=== PATIENT | female | born 1975 | race Caucasian/White ===

== ENCOUNTER 2019-05-01 15:49 | Emergency (ER) | payer OTHER ==
[~2019-05-01] VITALS: Ht 167.6 cm; Wt 86.2 kg
[~2019-05-01 15:49] MED LIST changes: -CALCIUM 500 +1 EAC5 PO
[2019-05-01] MEDS ORDERED: CALCIUM 500 +1 EAC5 PO (16:01)
[2019-05-01 17:20] VITALS: BP 132/70
--- NOTE | 2019-05-02 16:08 | EKG ---
[place] [address] ELECTROCARDIOGRAM REPORT Name: ESCOBEDOROBERT LAZARO Room: [facility]#: [id number] Admission: 05/01/19 Attend Phys: Discharge: 05/01/19 Date of : 75 Report #: [id number] THIS REPORT FOR: //name// [facility] ED Test Date: 2019-05-01 Test Time: 15:56:19 Pat Name: ROBERT ESCOBEDO Department: Room: Gender: F General Office Worker: SEEMA : 1975 Requested By: Akin Ibanez Order Number: [id number] MD: Ulysses Vigil Measurements Intervals [place] Rate: 71 P: 63 NH: 176 QRS: 29 QRSD: 84 T: 47 QT: 417 QTc: 454 Interpretive Statements Sinus rhythm Probable left atrial enlargement No previous ECG available for comparison Electronically Signed On 05-02-2019 16:07:57 CDT by Ulysses Vigil [email or web address] <ELECTRONICALLY SIGNED> By: Ulysses Vigil MD, [facility] 05/02/19 1607 [id number] 1556 Ulysses Vigil MD, FACC /EPI
== END 2019-05-01 17:21 | disposition home or self-care (01) ==
LOC: M.ERS 15:49
DX: R06.00 Dyspnea, unspecified (principal); R42 Dizziness and giddiness; R07.89 Other chest pain; R05 Cough; E03.9 Hypothyroidism, unspecified; E83.51 Hypocalcemia; Z88.0 Allergy status to penicillin; Z88.2 Allergy status to sulfonamides

== ENCOUNTER → 2019-05-01 | Outpatient (CLI) | payer OTHER ==
[~2019-05-01] MED LIST: CALCIUM 500 +1 EAC5 PO; CALCIUM CARBO1000 MG; LEVOTHYROXIN0.125 M1; NAPROSYN500 MG PO; ULTRAM 50MG TAB50 MG PO; VITAMIN D1000 UNI1
[2019-05-01 12:59] LABS: ABSOLUTE BASOPHILS 0.1 thou/uL (0.0-0.2); ABSOLUTE EOSINOPHILS 0.1 thou/uL (0.0-0.7); ABSOLUTE LYMPHOCYTES 1.3 thou/uL (0.8-5.3); ABSOLUTE MONOCYTES 0.4 thou/uL (0.0-1.2); ABSOLUTE NEUTROPHILS 5.6 thou/uL (1.6-8.1); BASOPHILS 0.7 %; EOSINOPHILS 0.8 %; HEMATOCRIT 40.3 % (37.0-47.0); HEMOGLOBIN 13.1 gm/dL (12.0-15.0); LYMPHOCYTES 17.3 %; MCH 28.5 pg (26.0-34.0); MCHC 32.5 g/dL (28.0-37.0); MCV 87.8 fL (80.0-100.0); MONOCYTES 4.8 %; MPV 8.5 fl. (7.2-11.1); NUCLEATED RBCS 0 /100WBC; PLATELET COUNT* 258 thou/uL (150-400); POLYS 76.4 %; RBC 4.59 mil/uL (4.20-5.00); RDW-CV 13.7 % (10.5-14.5); WBC 7.3 thou/uL (4.0-11.0)
[2019-05-01 13:12] LABS: ALBUMIN 3.7 g/dL (3.4-5.0); POTASSIUM 3.8 mmol/L (3.5-5.1); TOTAL BILIRUBIN 0.4 mg/dL (<0.1-1.0); TOTAL PROTEIN 7.5 g/dL (6.4-8.2)
== END ==
LOC: M.LAB 12:43
PROVIDERS: Internal Medicine Cardiovascular Disease
DX: R06.02 Shortness of breath (principal)

== ENCOUNTER → 2019-06-23 | Outpatient (CLI) | payer OTHER ==
[~2019-06-23] MED LIST changes: +CALCIUM 500 +1 EAC5 PO
[2019-06-23 07:57] LABS: ABSOLUTE BASOPHILS 0.1 thou/uL (0.0-0.2); ABSOLUTE EOSINOPHILS 0.1 thou/uL (0.0-0.7); ABSOLUTE LYMPHOCYTES 1.2 thou/uL (0.8-5.3); ABSOLUTE MONOCYTES 0.5 thou/uL (0.0-1.2); ABSOLUTE NEUTROPHILS 5.5 thou/uL (1.6-8.1); BASOPHILS 0.8 %; EOSINOPHILS 1.5 %; HEMATOCRIT 39.7 % (37.0-47.0); HEMOGLOBIN 13.3 gm/dL (12.0-15.0); LYMPHOCYTES 15.8 %; MCH 29.3 pg (26.0-34.0); MCHC 33.6 g/dL (28.0-37.0); MCV 87.3 fL (80.0-100.0); MONOCYTES 7.4 %; MPV 8.6 fl. (7.2-11.1); NUCLEATED RBCS 0 /100WBC; PLATELET COUNT* 219 thou/uL (150-400); POLYS 74.5 %; RBC 4.55 mil/uL (4.20-5.00); RDW-CV 14.5 % (10.5-14.5); WBC 7.3 thou/uL (4.0-11.0)
[2019-06-23 09:15] LABS: ALBUMIN 3.9 g/dL (3.4-5.0); ALKALINE PHOSPHATASE 63 U/L (46-116); ANION GAP 11 mmol/L (7-16); BUN 21 mg/dL (7-18); CALCIUM 7.4 mg/dL (8.5-10.1); CHLORIDE 100 mmol/L (98-107); CHOLESTEROL 202 mg/dL (<200); CO2 29 mmol/L (21-32); CREATININE 1.1 mg/dL (0.6-1.3); GLUCOSE 101 mg/dL (70-99); HDL CHOLESTEROL 58 mg/dL (>40); LDL CHOLESTEROL 138 mg/dL (<100); POTASSIUM 4.3 mmol/L (3.5-5.1); SGOT 25 U/L (15-37); SGPT 45 U/L (30-65); SODIUM 140 mmol/L (136-145); TC:HDL 3.5 Ratio (Not establshd); TOTAL BILIRUBIN 0.4 mg/dL (<0.1-1.0); TOTAL PROTEIN 7.6 g/dL (6.4-8.2); TRIGLYCERIDE 32 mg/dL (<150); VLDL 6 mg/dL (<40)
[2019-06-23 09:16] LABS: SERUM ASSESSMENT Clear
== END ==
LOC: M.LAB 07:29
PROVIDERS: Internal Medicine
DX: Z00.00 Encounter for general adult medical examination without abnormal findings (principal)

== ENCOUNTER → 2019-06-26 | Outpatient (CLI) | payer OTHER | LOC: M.ULTRA 12:30 | DX: R10.2 Pelvic and perineal pain (principal) ==

== ENCOUNTER → 2020-01-15 | Outpatient (CLI) | payer OTHER ==
[2020-01-15 14:59] LABS: URINE BILIRUBIN NEGATIVE (Negative); URINE BLOOD 3+ (Negative); URINE CLARITY CLEAR; URINE COLOR YELLOW; URINE GLUCOSE-RANDOM NEGATIVE (Negative); URINE KETONES NEGATIVE (Negative); URINE LEUKOCYTES 3+ (Negative); URINE NITRITE NEGATIVE (Negative); URINE PROTEIN NEGATIVE (Negative); URINE UROBILINOGEN 0.2 E.U./dl (0.2-1.0)
[2020-01-15 15:08] LABS: BACTERIA >30 Many /HPF (None Seen)
[2020-01-15 15:09] LABS: SQUAMOUS 0-3 Few /LPF (0-3)
[2020-01-15 15:10] LABS: CASTS None Seen /LPF (None Seen)
[2020-01-15 15:11] LABS: CRYSTALS None Seen /LPF (None Seen); URINE WBC >25 Many /HPF (0-5); WBC CLUMPS Few (None Seen)
[2020-01-15 15:18] LABS: RENAL EPITHELIAL CELLS 0-3 Few /LPF (None Seen)
== END ==
LOC: M.LAB 14:45
PROVIDERS: Internal Medicine
DX: R39.9 Unspecified symptoms and signs involving the genitourinary system (principal)

== ENCOUNTER → 2020-01-18 | Outpatient (CLI) | payer OTHER | LOC: M.CT 13:38 | DX: Z13.6 Encounter for screening for cardiovascular disorders (principal) ==

== ENCOUNTER → 2020-07-08 | Outpatient (CLI) | payer OTHER | LOC: M.RAD 14:15 | PROVIDERS: ATTEND Internal Medicine | DX: Z12.31 Encounter for screening mammogram for malignant neoplasm of breast (principal) ==

== ENCOUNTER → 2020-09-10 | Outpatient (CLI) | payer OTHER ==
[2020-09-10 08:16] LABS: ABSOLUTE EOSINOPHILS 0.1 thou/uL (0.0-0.7); ABSOLUTE LYMPHOCYTES 1.3 thou/uL (0.8-5.3); ABSOLUTE MONOCYTES 0.5 thou/uL (0.0-1.2); ABSOLUTE NEUTROPHILS 4.1 thou/uL (1.6-8.1); BASOPHILS 0.7 %; EOSINOPHILS 2.2 %; HEMATOCRIT 37.6 % (37.0-47.0); HEMOGLOBIN 12.6 gm/dL (12.0-15.0); LYMPHOCYTES 21.6 %; MCH 29.5 pg (26.0-34.0); MCHC 33.4 g/dL (28.0-37.0); MCV 88.4 fL (80.0-100.0); MONOCYTES 8.7 %; MPV 8.3 fl. (7.2-11.1); NUCLEATED RBCS 0 /100WBC; PLATELET COUNT* 252 thou/uL (150-400); POLYS 66.8 %; RBC 4.25 mil/uL (4.20-5.00); RDW-CV 13.9 % (10.5-14.5); WBC 6.1 thou/uL (4.0-11.0)
[2020-09-10 08:25] LABS: ALBUMIN 3.4 g/dL (3.4-5.0); ALKALINE PHOSPHATASE 65 U/L (46-116); ANION GAP 7 mmol/L (7-16); BUN 8 mg/dL (7-18); CALCIUM 6.9 mg/dL (8.5-10.1); CHLORIDE 101 mmol/L (98-107); CHOLESTEROL 192 mg/dL (<200); CO2 32 mmol/L (21-32); GLUCOSE 100 mg/dL (70-99); HDL CHOLESTEROL 52 mg/dL (>40); LDL CHOLESTEROL 134 mg/dL (<100); POTASSIUM 3.7 mmol/L (3.5-5.1); SGOT 21 U/L (15-37); SGPT 23 U/L (30-65); SODIUM 140 mmol/L (136-145); TC:HDL 3.7 Ratio (Not establshd); TOTAL BILIRUBIN 0.4 mg/dL (<0.1-1.0); TOTAL PROTEIN 7.1 g/dL (6.4-8.2); TRIGLYCERIDE 34 mg/dL (<150); VLDL 7 mg/dL (<40)
[2020-09-10 08:27] LABS: SERUM ASSESSMENT Clear
== END ==
LOC: M.LAB 07:53
PROVIDERS: ATTEND Internal Medicine
DX: E03.9 Hypothyroidism, unspecified (principal); Z00.00 Encounter for general adult medical examination without abnormal findings

== ENCOUNTER → 2021-05-19 | Outpatient (CLI) | payer OTHER | LOC: M.OPS 10:54 | DX: Z23 Encounter for immunization (principal) ==

== ENCOUNTER → 2021-05-23 | Outpatient (CLI) | payer OTHER | LOC: M.OPS 08:19 | PROVIDERS: ATTEND Personal Emergency Response Attendant | DX: Z23 Encounter for immunization (principal) ==

== ENCOUNTER → 2021-06-02 | Outpatient (CLI) | payer OTHER | LOC: M.OPS 05-30 10:54 | PROVIDERS: ATTEND Personal Emergency Response Attendant | DX: R50.9 Fever, unspecified (principal); Z53.21 Procedure and treatment not carried out due to patient leaving prior to being seen by health care provider ==

== ENCOUNTER → 2021-06-06 | Outpatient (CLI) | payer OTHER | LOC: M.OPS 11:14 | PROVIDERS: ATTEND Personal Emergency Response Attendant | DX: Z23 Encounter for immunization (principal) ==

== ENCOUNTER → 2021-09-19 | Outpatient (CLI) | payer OTHER ==
[2021-09-19 09:30] LABS: ABSOLUTE BASOPHILS 0.1 thou/uL (0.0-0.2); ABSOLUTE NEUTROPHILS 3.6 thou/uL (1.6-8.1); BASOPHILS 1.3 %; HEMOGLOBIN 13.5 gm/dL (12.0-15.0); NUCLEATED RBCS 0 /100WBC
[2021-09-19 09:32] LABS: ABSOLUTE EOSINOPHILS 0.1 thou/uL (0.0-0.7); ABSOLUTE LYMPHOCYTES 1.2 thou/uL (0.8-5.3); ABSOLUTE MONOCYTES 0.4 thou/uL (0.0-1.2); EOSINOPHILS 2.5 %; HEMATOCRIT 40.4 % (37.0-47.0); LYMPHOCYTES 21.8 %; MCH 30.2 pg (26.0-34.0); MCHC 33.4 g/dL (28.0-37.0); MCV 90.5 fL (80.0-100.0); MONOCYTES 6.8 %; MPV 8.9 fl. (7.2-11.1); PLATELET COUNT* 218 thou/uL (150-400); POLYS 67.6 %; RBC 4.47 mil/uL (4.20-5.00); RDW-CV 13.3 % (10.5-14.5); WBC 5.3 thou/uL (4.0-11.0)
[2021-09-19 09:41] LABS: ALBUMIN 3.6 g/dL (3.4-5.0); ALKALINE PHOSPHATASE 68 U/L (46-116); ANION GAP 7 mmol/L (7-16); BUN 10 mg/dL (7-18); CALCIUM 7.3 mg/dL (8.5-10.1); CHLORIDE 98 mmol/L (98-107); CHOLESTEROL 236 mg/dL (<200); CO2 31 mmol/L (21-32); GLUCOSE 94 mg/dL (70-99); HDL CHOLESTEROL 64 mg/dL (>40); LDL CHOLESTEROL 166 mg/dL (<100); POTASSIUM 3.8 mmol/L (3.5-5.1); SGOT 17 U/L (15-37); SGPT 20 U/L (30-65); SODIUM 136 mmol/L (136-145); TC:HDL 3.7 Ratio (Not establshd); TOTAL BILIRUBIN 0.4 mg/dL (<0.1-1.0); TOTAL PROTEIN 7.3 g/dL (6.4-8.2); TRIGLYCERIDE 33 mg/dL (<150); VLDL 7 mg/dL (<40)
[2021-09-19 09:43] LABS: SERUM ASSESSMENT Clear
[2021-09-20 06:06] LABS: GLYCOHEMOGLOBIN (HGB A1C) 5.6 % (4.8-5.6)
== END ==
LOC: M.LAB 09:10
PROVIDERS: ATTEND Internal Medicine
DX: Z00.00 Encounter for general adult medical examination without abnormal findings (principal); E03.9 Hypothyroidism, unspecified

== ENCOUNTER → 2021-12-03 | Outpatient (CLI) | payer OTHER ==
[~2021-12-03] MED LIST changes: +LEVOXYL150 MCG PO
[2021-12-03 12:31] LABS: CALCIUM 7.6 mg/dL (8.5-10.1); POTASSIUM 3.7 mmol/L (3.5-5.1)
== END ==
LOC: M.LAB 11:55
PROVIDERS: ATTEND Registered Nurse Diabetes Educator
DX: Z12.31 Encounter for screening mammogram for malignant neoplasm of breast (principal); E89.0 Postprocedural hypothyroidism; Z79.899 Other long term (current) drug therapy